=== PATIENT | male | born 1950 | race Caucasian/White ===

== ENCOUNTER 2020-06-05 18:49 | Emergency (ER) | payer MEDICARE, OTHER ==
[2020-06-05 19:32] LABS: #Eosinphils 0.2 thou/uL (0.0-0.7); #Lymphocytes 1.2 thou/uL (1.20-3.40); #Monocytes 0.6 thou/uL (0.11-0.59); #Neutrophils 7.1 thou/uL (1.40-6.50); %Basophils 0.5 % (0.0-1.0); %Eosinophils 2.2 % (0.0-10.0); %Lymphocytes 13.1 % (21.0-51.0); %Neutrophils 77.2 % (42.0-75.0); Hemoglobin 14.5 g/dL (14.0-18.0); Mean Corpuscular HGB CONC 33.2 g/dL (32.0-36.0); Mean Corpuscular Volume 87.2 fL (78.0-98.0); Mean Platelet Volume 5.8 fL (7.4-10.4); Platelet Count 753 thou/uL (130-400); RBC Distribution Width 13.3 % (11.5-14.5); Red Blood Cell (RBC) Count 5.01 mill/uL (4.70-6.10); White Blood Cell (WBC) Count 9.2 thou/uL (4.8-10.8)
[2020-06-05 19:39] LABS: INR-International Normal Ratio 2.1; PTT 46.3 sec (22.9-36.1)
[2020-06-05 19:55] LABS: ALT (SGPT) 10 U/L (8-55); AST (SGOT) 9 U/L (5-34); Albumin 3.6 g/dL (3.4-4.8); Alcohol Less than 10 mg/dL (Less than 10); Alkaline Phosphatase 140 U/L (40-110); Anion Gap 15 mmol/L (10-20); BUN (Urea Nitrogen) 11 mg/dL (8.4-25.7); Bilirubin, Total 0.3 mg/dL (0.2-1.2); Calc. Creatinine Clearance 0 mL/min (70-130); Calcium 9.1 mg/dL (7.8-10.44); Carbon Dioxide 25 mmol/L (23-31); Chloride 106 mmol/L (98-107); Globulin 2.7 g/dL (2.4-3.5); Glucose 129 mg/dL (80-115); Potassium 3.9 mmol/L (3.5-5.1); Protein, Total 6.3 g/dL (5.8-8.1); Sodium 142 mmol/L (136-145)
[2020-06-05 19:56] LABS: Acetaminophen Less than 6.0 mcg/mL (10.0-30.0); Alcohol Less than 10 mg/dL (Less than 10); Salicylate Less than 8.0 mg/dL (15.0-30.0)
[2020-06-05] MEDS ORDERED: Lorazepam 2 MG/ML VIAL ONE (21:12)
[2020-06-05 23:50] LABS: Bilirubin Negative (Negative); Blood, Urine 2+ (Negative); Clarity Extra Turbid (Clear); Glucose, Urine (Dipstick) Normal (Negative); Ketone, Urine Negative (Negative); Leukocyte 250 Leu/uL (Negative); Nitrite Negative (Negative); Protein, Urine (Dipstick) 50 mg/dL (Neg-Trace); RBC/HPF Greater than 50 HPF (0-3); Specific Gravity, Urine 1.022 (1.002-1.036); Squamous Epithelial None Seen HPF (0-3); Urobilinogen Normal mg/dL (Less than 2)
[2020-06-05 23:51] LABS: Bacteria/HPF 1+ HPF (None Seen)
[2020-06-06] MEDS ORDERED: DULoxetine 30 MG CAP PO SCH (09:00)
[2020-06-06] MEDS ORDERED: Amlodipine 10 MG TAB PO SCH (09:00)
[2020-06-06] MEDS ORDERED: carBAMazepine 200 MG TAB PO SCH (09:00)
[2020-06-06] MEDS ORDERED: Sucralfate 1 GM TAB PO SCH (11:30)
[2020-06-06 16:09] LABS: SARS-CoV-2 NAA Rapid Test Not Detected (NotDetected)
[2020-06-06] MEDS ORDERED: Warfarin Sodium 2 MG TAB PO SCH (17:00)
[2020-06-06] MEDS ORDERED: Warfarin Sodium 5 MG TAB PO SCH (17:00)
[2020-06-07] MEDS ORDERED: Warfarin Sodium 2 MG TAB PO SCH (17:00)
[2020-06-07] MEDS ORDERED: Warfarin Sodium 5 MG TAB PO SCH (17:00)
== END 2020-06-06 17:27 ==
LOC: ERS 18:49
DX: R45.851 Suicidal ideations (principal); E78.5 Hyperlipidemia, unspecified; G47.30 Sleep apnea, unspecified; I10 Essential (primary) hypertension; Z86.73 Personal history of transient ischemic attack (TIA), and cerebral infarction without residual deficits; N40.0 Benign prostatic hyperplasia without lower urinary tract symptoms; Z79.01 Long term (current) use of anticoagulants; Z79.899 Other long term (current) drug therapy
CPT/HCPCS: 80307 ×2; 85610; 85730; 87086; 93005; 96374; 99285; U0002; 36415; 80053; 81003; 81015; 84443; 85025; J2060